=== PATIENT | male | born 1955 | race Caucasian/White ===

== ENCOUNTER → 2022-04-18 11:16 | Outpatient (CLI) | payer OTHER, SELFPAY ==
--- NOTE | ~2022-04-18 | CT_ITS ---
EXAMINATION:CT lung screening DATE: 04/18/2022 11:35 INDICATION: Personal history of nicotine dependence. Smoker who quit less than 1 year ago with 40 pac k year history. TECHNIQUE: Computed tomography (CT) of the chest was performed without intravenous contrast. Automate d exposure control and iterative reconstruction technique were employed. The dose-length product (DLP ) was 184.24 mGy-cm. COMPARISON: Chest CT 02/09/2015 FINDINGS: There is severe emphysema. There is mild atelectasis bilaterally. There is a small left pos terior diaphragmatic hernia containing fat. No pleural effusion. The heart size is normal. There are coronary artery calcifications. No pericardial effusion. There is bilateral gynecomastia. 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 There is mild thoracic spondylosis. IMPRESSION: 1. Lung-RADS category 1: Negative. Continue annual screening with noncontrast low-dose chest CT in 12 months. Reviewed, dictated and finalized at location B. IMPRESSION: 1. Lung-RADS category 1: Negative. Continue annual screening with noncontrast l ow-dose chest CT in 12 months.
== END ==
PROVIDERS: Visit Provider Student in an Organized Health Care Education/Training Program
DX: Z12.2 Encounter for screening for malignant neoplasm of respiratory organs (principal); F17.211 Nicotine dependence, cigarettes, in remission
CPT/HCPCS: 71271